=== PATIENT | female | born 1955 | race Caucasian/White ===

== ENCOUNTER 2018-06-22 18:40 | Emergency (ER) | payer MEDICAID, MEDICARE, OTHER ==
[~2018-06-22] VITALS: Ht 160 cm; Wt 117.0 kg
[~2018-06-22 18:40] MED LIST: AMLO5TAB88; CLON0.5T12; FLURBIPROFEN; HYDR12.518; KETAMINE; LEVOTHYROXINE; METF500T; MIRT30TA; VENL75TA
[2018-06-22 22:04] LABS: BASOPHILS % 0.7 % (0.0-2.0); HEMATOCRIT. 42.6 % (36.0-48.0); HEMOGLOBIN. 14.6 g/dL (12.0-16.0); LYMPHOCYTES % 40.1 % (20.0-50.0); MEAN CORPUSCULAR HEMOGLOBIN 30.9 pg (28.0-32.0); MEAN CORPUSCULAR VOLUME 89.9 fL (81.0-99.0); MEAN PLATELET VOLUME 9.2 fl (7.4-10.4); MONOCYTES % 8.9 % (2.0-8.0); NEUTROPHILS % 48.3 % (40.0-76.0); PLATELET 250 x1000/uL (130-400); RED BLOOD CELL COUNT 4.74 mill/uL (4.2-5.4); RED CELL DISTRIBUTION WIDTH 13.9 % (11.6-14.6)
[2018-06-22 22:07] LABS: CHLORIDE 107 mEq/L (98-107)
[2018-06-22 22:08] LABS: INR 1.1; PROTHROMBIN TIME 10.6 sec (9.1-11.1)
[2018-06-22 23:56] LABS: CLARITY URINE CLEAR (CLEAR); COLOR URINE YELLOW (YELLOW); KETONES URINE NEGATIVE (NEGATIVE); LEUKOCYTE ESTERASE URINE 1+ (NEGATIVE); NITRITE URINE NEGATIVE (NEGATIVE); OCCULT BLOOD URINE NEGATIVE (NEGATIVE); PROTEIN URINE NEGATIVE (NEGATIVE); SPECIFIC GRAVITY URINE 1.022 (1.005-1.030); UROBILINOGEN URINE 0.2 E.U./dL (0.2-1.0)
[2018-06-23] MEDS ORDERED: KETOROLAC 15MG/ML VIAL IV NR (01:15)
[2018-06-23 01:30] VITALS: BP 155/90
[2018-06-23] MEDS ORDERED: FENTANYL CITRATE/PF 50MCG/ML 2ML VIAL IV NR (01:30)
[2018-06-23] MEDS ORDERED: OXYCODONE HCL 5MG TABLET PO ONE (01:45)
== END 2018-06-23 01:39 | disposition home or self-care (01) ==
LOC: ER 20:40
DX: M25.562 Pain in left knee (principal); M25.561 Pain in right knee; R07.89 Other chest pain; E88.09 Other disorders of plasma-protein metabolism, not elsewhere classified; R74.0 Nonspecific elevation of levels of transaminase and lactic acid dehydrogenase [LDH]; E66.01 Morbid (severe) obesity due to excess calories; G89.29 Other chronic pain; M54.5 Low back pain; M79.603 Pain in arm, unspecified; F41.9 Anxiety disorder, unspecified; K21.9 Gastro-esophageal reflux disease without esophagitis; I10 Essential (primary) hypertension; E11.9 Type 2 diabetes mellitus without complications; R06.02 Shortness of breath; Z88.9 Allergy status to unspecified drugs, medicaments and biological substances; Z79.899 Other long term (current) drug therapy; Z98.1 Arthrodesis status; Z68.42 Body mass index [BMI] 45.0-49.9, adult
CPT/HCPCS: 36415; 71045; 73562; 80053; 81003; 84484; 85025; 85610; 93005; 99285